=== PATIENT | female | born 1975 | race Caucasian/White ===

== ENCOUNTER 2021-01-15 02:07 | Emergency (ER) | payer MEDICAID ==
[~2021-01-15] VITALS: Ht 157.5 cm; Wt 62.8 kg
[~2021-01-15 02:07] MED LIST: LEVO500T90 PO
[2021-01-15 02:20] VITALS: BP 113/67
[2021-01-15 03:18] LABS: BASOPHILS # (AUTO) 0.1 X10'3 (0-0.2); BASOPHILS % (AUTO) 0.8 % (0-1); EOSINOPHILS # (AUTO) 0.2 X10'3 (0-0.9); EOSINOPHILS % (AUTO) 1.3 % (0-6); HEMATOCRIT 41.2 % (35.0-45.0); LYMPHOCYTES # (AUTO) 2.6 X10'3 (1.1-4.8); LYMPHOCYTES % (AUTO) 21.3 % (21-51); MEAN CORPUSCULAR HEMOGLOBIN 29.8 PG (27.0-31.0); MEAN CORPUSCULAR VOLUME 87.6 FL (78-98); MEAN PLATELET VOLUME 8.2 FL (7.4-10.4); MONOCYTES # (AUTO) 1.6 X10'3 (0-0.9); MONOCYTES % (AUTO) 12.7 % (2-12); NEUTROPHILS # (AUTO) 7.9 X10'3 (1.8-7.7); NEUTROPHILS % (AUTO) 63.9 % (42-75); PLATELET COUNT 337 X10'3 (140-440); RED CELL DISTRIBUTION WIDTH 13.4 % (11.5-14.5); WHITE BLOOD COUNT 12.4 X10'3 (4.5-11.0)
[2021-01-15 03:19] LABS: ALANINE AMINOTRANSFERASE 39 U/L (12-78); ALBUMIN 3.9 G/DL (3.4-5.0); ALKALINE PHOSPHATASE 75 IU/L (46-116); ANION GAP 14 (8-16); ASPARTATE AMINO TRANSFERASE 26 U/L (10-37); BILIRUBIN,TOTAL 0.7 MG/DL (0.1-1.0); BLOOD UREA NITROGEN 13 MG/DL (7-18); BUN/CREATININE RATIO 13.8 (6.6-38.0); CHLORIDE 107 MMOL/L (99-107); CREATININE 0.94 MG/DL (0.40-0.90); GLUCOSE 134 MG/DL (70-104); POTASSIUM 3.7 MMOL/L (3.5-5.1); SODIUM 141 MMOL/L (135-145); TOTAL CARBON DIOXIDE 19.6 MMOL/L (24-32); eGFR 64 ML/MIN
[2021-01-15] MEDS ORDERED: LIDOcaine Viscous 15ml cup MM PRN (03:35)
[2021-01-15] MEDS ORDERED: CLIN-97 PO (04:38)
[2021-01-15] MEDS ORDERED: HYDR-3965 PO (04:38)
[2021-01-15] MEDS ORDERED: CHLO118M PO (04:38)
[2021-01-15] MEDS ORDERED: LIDOcaine 1% W/epiNEPHrine 1:200,000 10ml vial IJ ONE (04:40)
[2021-01-15] MEDS ORDERED: clindamycin 150mg capsule PO ONE (04:40)
[2021-01-15] MEDS ORDERED: chlorhexidine gluconate 15ml Cup****oral rinse MM SCH (04:50)
[2021-01-15] MEDS ORDERED: chlorhexidine gluconate 15ml Cup****oral rinse MM ONE (04:50)
== END 2021-01-15 05:21 | disposition home or self-care (01) ==
LOC: ER 02:07
DX: K04.7 Periapical abscess without sinus (principal); F17.200 Nicotine dependence, unspecified, uncomplicated; F12.90 Cannabis use, unspecified, uncomplicated; Z88.0 Allergy status to penicillin; Z79.899 Other long term (current) drug therapy
CPT/HCPCS: 36415; 41800; 80053; 83605; 84145; 85025; 87040; 87070; 99283; 99284

== ENCOUNTER 2022-07-04 15:18 | Emergency (ER) | payer MEDICAID ==
[~2022-07-04] VITALS: Ht 157.5 cm; Wt 70.0 kg
[~2022-07-04 15:18] MED LIST changes: +CHLO118M PO; +CLIN-97 PO; +LEVO-65 PO; -LEVO500T90 PO
[2022-07-04 15:28] VITALS: BP 143/70
[2022-07-04] MEDS ORDERED: clindamycin 150mg capsule PO ONE (16:00)
[2022-07-04] MEDS ORDERED: CLIN150C2 PO ×3 (16:02→17:06)
== END 2022-07-04 16:30 | disposition home or self-care (01) ==
LOC: ER 15:19
DX: K04.7 Periapical abscess without sinus (principal); F12.10 Cannabis abuse, uncomplicated; Z88.0 Allergy status to penicillin; Z88.5 Allergy status to narcotic agent; Z79.899 Other long term (current) drug therapy; Z79.1 Long term (current) use of non-steroidal anti-inflammatories (NSAID)
CPT/HCPCS: 99283

== ENCOUNTER 2023-03-23 23:35 | Emergency (ER) | payer MEDICAID ==
[~2023-03-23] VITALS: Ht 157.5 cm; Wt 69.0 kg
[~2023-03-23 23:35] MED LIST changes: +CLIN150C2 PO
[2023-03-24] MEDS ORDERED: ibuprofen tablet 400 MG TABLET PO ONE (00:50)
[2023-03-24] MEDS ORDERED: acetaminophen 325mg tablet PO ONE (00:50)
[2023-03-24 01:07] VITALS: BP 116/80; PULSE 105; RESP 18; TEMP 97.8; O2SAT 99
== END 2023-03-24 01:09 | disposition home or self-care (01) ==
LOC: ER 23:36
DX: M25.532 Pain in left wrist (principal); M79.642 Pain in left hand; F12.90 Cannabis use, unspecified, uncomplicated; Z88.0 Allergy status to penicillin; Z88.8 Allergy status to other drugs, medicaments and biological substances; Z79.2 Long term (current) use of antibiotics; Z79.899 Other long term (current) drug therapy; W19.XXXA Unspecified fall, initial encounter; Y93.89 Activity, other specified; Y92.89 Other specified places as the place of occurrence of the external cause; Y99.8 Other external cause status
CPT/HCPCS: 10060; 29125; 73110; 73130; 99283; 99284

== ENCOUNTER 2023-07-01 14:31 | Emergency (ER) | payer MEDICAID ==
[~2023-07-01] VITALS: Ht 157.5 cm; Wt 66.3 kg
[2023-07-01 15:04] VITALS: BP 130/82; PULSE 110; TEMP 97.8; O2SAT 98
[2023-07-01] MEDS ORDERED: ketorolac trometh inj. 60 MG/2 ML VIAL IM ONE (15:15)
[2023-07-01 15:32] VITALS: RESP 14
[2023-07-01] MEDS: ketorolac trometh. 30mg/ml inj. IV ONE (15:32)
[2023-07-01] MEDS ORDERED: IBUP-1985 PO (16:04)
[2023-07-01] MEDS ORDERED: METH-798 PO (16:04)
== END 2023-07-01 16:20 | disposition home or self-care (01) ==
LOC: ER 14:32
DX: S20.224A Contusion of middle back wall of thorax, initial encounter (principal); F12.90 Cannabis use, unspecified, uncomplicated; Z88.0 Allergy status to penicillin; Z88.5 Allergy status to narcotic agent; Z79.899 Other long term (current) drug therapy; Z79.2 Long term (current) use of antibiotics; W10.8XXA Fall (on) (from) other stairs and steps, initial encounter; Y93.89 Activity, other specified; Y92.89 Other specified places as the place of occurrence of the external cause; Y99.8 Other external cause status
CPT/HCPCS: 71101; 72100; 96374; 99284; J1885

== ENCOUNTER 2024-08-16 22:07 | Emergency (ER) | payer MEDICAID ==
[~2024-08-16] VITALS: Ht 162.6 cm; Wt 66.4 kg
[~2024-08-16 22:07] MED LIST changes: +IBUP-1985 PO; +METH-798 PO
--- NOTE | 2024-08-16 22:42 | Physician Documentation ---
History of Present Illness ~ Chief Complaint: Rash Stated Complaint: POISON OAK OK to notify your PCP?: Yes Primary Medical Doctor: [facility], [facility] Source: patient Mode of Arrival: POV Exam Limitations: no limitations HPI 48-year-old female presents with rash in genital region and posterior thighs and buttocks should you have after sitting on poison oak 2 days ago. She attempted using hydrocortisone cream at home and taking an oatmeal bath with no relief. Medication Reconciliation Allergies: Coded Allergies: Penicillins (Verified Allergy, Intermediate, itching, 03/23/23) codeine (Verified Allergy, Intermediate, itching, 03/23/23) Scheduled Chlorhexidine Gluconate (Peridex), 15 ML PO Q12H Clindamycin (Cleocin ), 3 CAP PO Q8H Clindamycin HCL* (Clindamycin HCL*), 1 CAP PO Q8H Clobetasol Propionate (Clobetasol Propionate), 1 APPLIC TOP Q12H Ibuprofen (Ibuprofen), 1 TAB PO Q8H Levofloxacin (Levofloxacin), 500 MG PO DAILY Methocarbamol (Methocarbamol), 1 TAB PO Q8H Prednisone* (Prednisone*), 1 TAB PO DAILY Past Medical History Past Medical History: No Pertinent History Past Surgical History: no surgical history Alcohol Use: None Drug Use: marijuana Lives In: Home Review of Systems All Other Systems at this time: Reviewed and Negative Physical Exam Vital Signs: RN Vital Signs have been reviewed: Yes, Temperature: 98.1, Source: Oral, Heart Rate: 102, Respiratory Rate: 18, BP: 123/76, Pulse Oximetry: 98, Weight: 66.360 Oxygen Flow Rate: 0 Pulse Oximetry Reflects: adequate oxygenation Physical Exam General: Alert, no distress. HEENT: No injection, moist mucous membranes. Neck: Full range of motion. Respiratory: No respiratory distress, equal chest rise and fall. Chest: No accessory muscle use. Cardiovascular: Regular rate and rhythm. Gastrointestinal: Nondistended. Extremities: Normal range of motion, no deformity. Neurologic: Oriented x4. Psychiatric: Normal mood and affect. Skin: Diffuse erythematous rash to bilateral inner thighs bilateral buttocks left posterior thigh, and lower abdomen, no blistering seen. Progress Results/Orders Results/Orders Orders - PAT MATHEWS TOUCH UP PAINTER Clobetasol Propionate Oint (Clobetasol P (08/16/24 23:15) Prednisone Tablet (Prednisone Tablet) (08/16/24 23:20) Vital Signs 08/16/24 22:17 Temp 98.1 Pulse 102 Resp 18 B/P (MAP) 123/76 Pulse Ox 98 O2 Flow Rate 0 Medical Decision Making Findings 48-year-old female presents with a diffuse rash after being exposed to poison oak. I administered clobetasol and prednisone orally while here in the department and sent her with a prescription for both sent to her pharmacy. She has been educated she can use calamine lotion to help soothe the affected areas as well. She should avoid any hot baths or showers as this can further irritate the skin. She should avoid poison oak in the future. Follow up with the primary care provider in the next 3 days and return back here for any new or worsening symptom. Also educated not to scratch as this can cause a secondary bacterial infection. Differential Dx:Considerations: Include: Erysipelas, Herpes simplex, Impetigo, Molluscum contagiosum, Psoriaisis, Scabies Departure Disposition: 01 HOME / SELF CARE / HOMELESS Impression: Primary Impression: Allergic contact dermatitis Condition: Stable Discharge Instructions: Contact Dermatitis Additional Instructions: Please use the prednisone pack that was given to you and follow the directions for the taper pack. You can use the clobetasol ointment to all affected areas twice daily but please apply a thin layer only. Do not itch any of the areas that are bothersome as this can cause a secondary skin infection. Avoid any hot baths or showers and says can further irritate the skin. Follow up with her primary care provider in the next 3 days and return back here for any new or worsening symptoms. Referrals: NO PRIMARY CARE PROVIDER (PCP) Prescriptions Clobetasol Propionate (Clobetasol Propionate) 0.05 % Cream..g. 1 APPLIC TOP Q12H for 14 Days, #30 GM 0 Refills apply to affected area(s) Prov: PAT MATHEWS TOUCH UP PAINTER 08/16/24 Prednisone* (Prednisone*) 20 Mg Tablet 1 TAB PO DAILY for 15 Days, #18 TAB Day 1-5: 2 tablets once daily by mouth for 5 days Day 6-10: 1 tablet once daily by mouth for 5 days Day 11-15: 0.5 tablet once daily by mouth for 5 days Prov: PAT MATHEWS 08/16/24 Education Educated: Patient Educated regarding: diagnosis, treatment, prognosis, need for follow up Additional Comment Medical Screen Exam This patient recieved a medical screening examination. After reviewing the individual's medical complaints with presenting symptoms and performing an appropriate physical examination, it was determined that no immediate life- threatening emergency medical condition is present. This individual is also not a women having contractions. Signature Scribe Signature: . Attestation: Scribed for Emergency,Department by Pat Maria NP . 08/16/24 23:25 PAT MATHEWS Aug 16, 2024 22:42
[2024-08-16] MEDS ORDERED: clobetasol propionate ointment 15gm TP ONE (23:15)
[2024-08-16] MEDS ORDERED: PRED20TA PO (23:19)
[2024-08-16] MEDS ORDERED: CLOB30CR4 TOP (23:27)
[2024-08-16 23:36] VITALS: BP 122/74; PULSE 99; RESP 18; TEMP 98.6; O2SAT 99
[2024-08-16] MEDS: predniSONE 20 mg tablet PO ONE (23:41)
== END 2024-08-16 23:53 | disposition home or self-care (01) ==
LOC: ER 22:08
DX: L23.7 Allergic contact dermatitis due to plants, except food (principal); Z88.0 Allergy status to penicillin; Z88.5 Allergy status to narcotic agent; Z88.8 Allergy status to other drugs, medicaments and biological substances
CPT/HCPCS: 99283; J7512

== ENCOUNTER 2025-02-13 13:04 | Emergency (ER) | payer MEDICAID ==
[~2025-02-13] VITALS: Ht 162.6 cm; Wt 64.4 kg
[~2025-02-13 13:04] MED LIST changes: +CLIN-224 PO; -CLIN-97 PO; +CLOB30CR4 TOP; -IBUP-1985 PO; +IBUP600T52 PO
[2025-02-13 13:06] VITALS: BP 139/75; PULSE 115; RESP 18; TEMP 97.7; O2SAT 99
[2025-02-13] MEDS ORDERED: AZIT-164 PO (15:06)
[2025-02-13] MEDS ORDERED: ALBU8HFA INH (15:06)
--- NOTE | 2025-02-13 15:10 | Physician Documentation ---
History of Present Illness ~ Chief Complaint: Cold, cough & congestion Stated Complaint: FLU SYMPTOMS Time Seen by MD: 13:43 OK to notify your PCP?: Yes Primary Medical Doctor: [facility] Source: patient Mode of Arrival: POV Exam Limitations: no limitations HPI Reports having congestion, cough and body aches for the past 3 weeks. She reports that she has been taking Tylenol and Robitussin as well as TheraFlu with no relief. She reports that her symptoms initially started to get better but then started to get worse and she started to have a productive cough that she felt was coming from deep in her chest. She reports that she is having white yellow sputum. She reports having some chest wall pain during coughing spells which resolves after coughing stops. Medication Reconciliation Allergies: Coded Allergies: Penicillins (Verified Allergy, Intermediate, itching, 02/13/25) codeine (Verified Allergy, Intermediate, itching, 02/13/25) Scheduled Azithromycin (Zithromax), 1 TAB PO DAILY Chlorhexidine Gluconate (Peridex), 15 ML PO Q12H Clindamycin (Cleocin ), 3 CAP PO Q8H Clindamycin HCL* (Clindamycin HCL*), 1 CAP PO Q8H Clobetasol Propionate (Clobetasol Propionate), 1 APPLIC TOP Q12H Ibuprofen (Ibuprofen), 1 TAB PO Q8H Levofloxacin (Levofloxacin), 500 MG PO DAILY Methocarbamol (Methocarbamol), 1 TAB PO Q8H Scheduled PRN albuterol inhaler (Pro-Air Inhaler), 2 PUFFS INH Q4HPRN PRN for wheezing Past Medical History Past Medical History: No Pertinent History Past Surgical History: no surgical history Smoking Status: Never smoker Alcohol Use: None Drug Use: marijuana Lives In: Home Review of Systems All Other Systems at this time: Reviewed and Negative Physical Exam Vital Signs: RN Vital Signs have been reviewed: Yes, Temperature: 97.7, Source: Temporal, Heart Rate: 115, Respiratory Rate: 18, BP: 139/75, Pulse Oximetry: 99, Weight: 64.400 Oxygen Flow Rate: 0 Pulse Oximetry Reflects: adequate oxygenation Physical Exam General: Alert, no apparent distress. HEENT: PERRL, EOMI, no injection, moist mucous membranes. Bilateral sinuses tender. TM clear. Posterior pharynx erythema, no exudate, tonsils absent. Neck: Full range of motion. Mild anterior cervical lymphadenopathy Respiratory: no respiratory distress. Trace wheezes and crackles heard bilaterally, good air movement and clear otherwise. Chest: No accessory muscle use. Cardiovascular: Regular rate and rhythm, no murmurs. Gastrointestinal: Soft, nontender, nondistended. Bowels sounds present. Extremities: Normal range of motion, no deformity. Neurologic: Oriented x4. Psychiatric: Normal mood and affect. Skin: Normal color, warm and dry. No edema, no ecchymosis. Progress Results/Orders Results/Orders Medical Decision Making Additional information obtaine: old records Findings Has been having symptoms for the past 3 weeks getting worse. Productive cough. Physical exam reveals sinuses tender bilaterally but worse on the right side. Good air movement in the lungs but there is some slight wheezes and crackles bilaterally in the bases. Prescribed azithromycin with the 1st dose given here as well as an albuterol inhaler. She reports this is she has shortness of breath after coughing spells. Differential Dx:Considerations: Include: Influenza, Peritonsillar abscess, Pneumonia, Pnuemonitis, URI Departure Disposition: 01 HOME / SELF CARE / HOMELESS Impression: Primary Impression: Acute respiratory infection Additional Impression: Sinusitis Condition: Stable Discharge Instructions: Upper Respiratory Infection, Adult, [id number] Additional Instructions: You can take acetaminophen or ibuprofen to help with fevers and pain. Stay well hydrated and rested. Return to the emergency department if your fevers and chills continue to worsen after 5 days, if you develop worsening cough with thick sputum, are unable to stay hydrated, or have any new or concerning concerning symptoms. Contact your primary care provider in the next 2-3 days for re-evaluation and to make sure your symptoms are improving. Referrals: NO PRIMARY CARE PROVIDER (PCP) Prescriptions albuterol inhaler (Pro-Air Inhaler) 8.5 Gm Inhaler 2 PUFFS INH Q4HPRN PRN for wheezing for 30 Days, #18 GM Prov: PAT BOWER BARREL TESTER AND DRAINER 02/13/25 Azithromycin (Zithromax) 250 Mg Tablet 1 TAB PO DAILY, #5 TAB Prov: PAT BOWERP 02/13/25 Education Educated: Patient Educated regarding: diagnosis, treatment, prognosis, need for follow up Additional Comment Medical Screen Exam This patient recieved a medical screening examination. After reviewing the individual's medical complaints with presenting symptoms and performing an appropriate physical examination, it was determined that no immediate life- threatening emergency medical condition is present. This individual is also not a women having contractions. Signature Scribe Signature: . Attestation: Scribed for Pat Bowerp by Pat Maria NP . 02/13/25 15:08 Parts of this note were created using [employer] voice recognition software program. While efforts were made to correct any mistakes made by this voice recognition software program, nonsensical phrases may remain in this note. In addition, there may be errors and syntax, grammar, content and spelling. PAT BOWER Feb 13, 2025 15:09 HALEY VELEZ MD Feb 18, 2025 05:56
== END 2025-02-13 15:31 | disposition home or self-care (01) ==
LOC: ER 13:05
DX: J98.8 Other specified respiratory disorders (principal); J32.9 Chronic sinusitis, unspecified; F12.90 Cannabis use, unspecified, uncomplicated; Z88.0 Allergy status to penicillin; Z88.1 Allergy status to other antibiotic agents; Z88.5 Allergy status to narcotic agent; Z88.6 Allergy status to analgesic agent
CPT/HCPCS: 99283